=== PATIENT | male | born 1975 | race Caucasian/White ===

== ENCOUNTER 2020-10-17 22:53 | Emergency (ER) | payer BC ==
[2020-10-18] MEDS ORDERED: PREDNISONE 20 M20 MG PO (02:37)
[2020-10-18] MEDS ORDERED: VISTARIL25 MG PO (02:37)
[2020-10-18] MEDS ORDERED: KEFLEX CAP 250250 MG PO (02:37)
== END 2020-10-18 02:48 | disposition home or self-care (01) ==
LOC: ER1 22:53
DX: L50.9 Urticaria, unspecified (principal)
CPT/HCPCS: 99284